=== PATIENT | male | born 1960 | race Caucasian/White ===

== ENCOUNTER 2018-10-10 09:57 | Day surgery (SDC) | payer BC ==
[2018-10-03 11:54] LABS: HEMATOCRIT 46.9 % (37.9-51.0); HEMOGLOBIN 16.2 g/dL (13.5-17.0); MEAN CORPUSCULAR HGB CONC 34.6 g/dL (32.0-36.0); MEAN CORPUSCULAR VOLUME 107 fl (80-97); PLATELET COUNT 140 10^3/uL (150-450); RED BLOOD COUNT 4.38 10^6/uL (4.35-5.55); RED CELL DISTRIBUTION WIDTH 12.8 % (11.5-14.0); WHITE BLOOD COUNT 5.8 10^3/uL (4.0-10.5)
[2018-10-03 11:57] LABS: PROTHROMBIN TIME 13.7 SEC (11.4-15.4)
[2018-10-03 11:58] LABS: PARTIAL THROMBOPLASTIN TIME 29.8 SEC (23.5-35.8)
[2018-10-03 12:10] LABS: APPEARANCE,URINE SLIGHTLY-CLOUDY; BILIRUBIN,URINE SMALL (NEGATIVE); COLOR,URINE AMBER; GLUCOSE, URINE NEGATIVE (NEGATIVE); KETONES,URINE NEGATIVE (NEGATIVE); LEUKOCYTE ESTERASE,URINE NEGATIVE (NEGATIVE); NITRITE,URINE NEGATIVE (NEGATIVE); PROTEIN,URINE >=500 mg/dL (NEGATIVE); URINE SPECIFIC GRAVITY 1.031
--- NOTE | 2018-10-04 10:10 | EKG REPORT ---
SEVERITY:- NORMAL ECG - SINUS RHYTHM : Confirmed by: Smita Eli 04-Oct-2018 10:09:03
[~2018-10-10 09:57] MED LIST: FENTANYL CITRATE INJ/PF 100 MCG/2 ML AMPUL ONE; LIDOCAINE 1% INJ-PF (10 MG/ML) 30 ML SDV ONE; LIDOCAINE 2% INJ-PF (100 MG/5 ML) SYRINGE ONE; PROPOFOL INJ 200 MG/20 ML VIAL IV ONE
[2018-10-10] MEDS ORDERED: LIDOCAINE 0.5% INJ-PF (5 MG/ML) 50 ML SDV ONE (10:30)
[2018-10-10] MEDS ORDERED: MIDAZOLAM 2 MG/2 ML INJ ONE (11:22)
[2018-10-10] MEDS: MIDAZOLAM 2 MG/2 ML INJ ONE ×2 (11:25→11:55)
[2018-10-10] MEDS ORDERED: CEFAZOLIN 1 GM/D5W RTU 1 GM/50 ML RTUPB IV ONE (12:44)
[2018-10-10] MEDS ORDERED: MORPHINE SULFATE 10 MG/ML INJ IV PRN (13:41)
[2018-10-10] MEDS ORDERED: FENTANYL CITRATE INJ/PF 100 MCG/2 ML AMPUL IV PRN ×2 (13:41)
[2018-10-10] MEDS ORDERED: DIPHENHYDRAMINE HCL 50 MG/ML VIAL IV PRN (13:41)
[2018-10-10] MEDS ORDERED: PROMETHAZINE HCL INJ 25 MG/1 ML VIAL IV PRN ×2 (13:41)
[2018-10-10] MEDS ORDERED: MEPERIDINE HCL/PF INJ 25 MG/1 ML DISP.SYRIN IV PRN (13:41)
[2018-10-10] MEDS ORDERED: FENTANYL CITRATE INJ/PF 100 MCG/2 ML AMPUL ONE (14:13)
[2018-10-10] MEDS: FENTANYL CITRATE INJ/PF 100 MCG/2 ML AMPUL IV PRN ×2 (14:15→14:26)
[2018-10-10] MEDS ORDERED: OXYCODONE-ACETAMINOPHEN 5-325 MG TABLET PO PRN (14:26)
[2018-10-10] MEDS ORDERED: OXYCODONE HCL IR 5 MG TABLET ONE (15:09)
--- NOTE | 2018-10-10 16:10 | RADIOLOGY REPORT (SQ) ---
EXAM DESCRIPTION: NO CHG FLUORO; L SPINE 2 VIEWS COMPLETED DATE/TIME: 10/10/2018 2:29 pm REASON FOR STUDY: KYPHOPLASTY LUMBAR ASST WITH FLUORO IN OR S32.050A WEDGE COMPRESSION FRACTURE OF FIFTH LUMBAR VERTEBRA COMPARISON: None. FLUOROSCOPY TIME: 1.2 minutes 8 Images saved to PACS TECHNIQUE: Intra-operative images acquired during surgical procedure to evaluate progress. NUMBER OF IMAGES: 8 LIMITATIONS: None. FINDINGS: Intraoperative images obtained to evaluate progress of lumbar kyphoplasty. Please see ope rative report for detailed description of procedure. IMPRESSION: IMAGE(S) OBTAINED DURING PROCEDURE. COMMENT: Quality ID 145: Final reports for procedures using fluoroscopy that document radiation exp osure indices, or exposure time and number of fluorographic images (if radiation exposure indices are not available) Please consult full operative report of the attending physician for description of the procedure. TECHNICAL DOCUMENTATION: JOB ID: [id number] [employer]- All Rights Reserved Reading location - IP/workstation name: [email or web address]
--- NOTE | 2018-10-10 16:10 | RADIOLOGY REPORT (SQ) ---
EXAM DESCRIPTION: NO CHG FLUORO; L SPINE 2 VIEWS COMPLETED DATE/TIME: 10/10/2018 2:29 pm REASON FOR STUDY: KYPHOPLASTY LUMBAR ASST WITH FLUORO IN OR S32.050A WEDGE COMPRESSION FRACTURE OF FIFTH LUMBAR VERTEBRA COMPARISON: None. FLUOROSCOPY TIME: 1.2 minutes 8 Images saved to PACS TECHNIQUE: Intra-operative images acquired during surgical procedure to evaluate progress. NUMBER OF IMAGES: 8 LIMITATIONS: None. FINDINGS: Intraoperative images obtained to evaluate progress of lumbar kyphoplasty. Please see ope rative report for detailed description of procedure. IMPRESSION: IMAGE(S) OBTAINED DURING PROCEDURE. COMMENT: Quality ID [id number]: Final reports for procedures using fluoroscopy that document radiation exp osure indices, or exposure time and number of fluorographic images (if radiation exposure indices are not available) Please consult full operative report of the attending physician for description of the procedure. TECHNICAL DOCUMENTATION: JOB ID: [id number] [employer]- All Rights Reserved Reading location - IP/workstation name: [email or web address]
[2018-10-10 16:27] VITALS: BP 177/91
--- NOTE | 2018-10-12 12:41 | OPERATIVE REPORT E ---
Operative Report NAME: NANCY SQUIRES : 1960 AGE: 57Y DATE OF SURGERY: 10/10/2018 ROOM: PREOPERATIVE DIAGNOSIS: VERTEBRAL COMPRESSION FRACTURE AT L4. POSTOPERATIVE DIAGNOSIS: VERTEBRAL COMPRESSION FRACTURE AT L4. OPERATION: PERCUTANEOUS KYPHOPLASTY AT VERTEBRAL BODY LEVEL 4. SURGEON: HE HODGE M.D. [employer]AFER PRODUCTION WORKER: None. ANESTHESIA: MAC. COMPLICATIONS: None. PROCEDURE: After obtaining informed consent and advising the patient of the risks and benefits including serious neurological injury, bleeding, infection, paralysis, allergic reaction, , and failure to adequately treat pain, he was taken to the operating room suite. He was placed in the prone position and was prepped and draped. A C-arm was brought in for lateral and AP visualization and draped appropriately at the L4 level using peripedicular approach. Suitable lidocaine with bicarb. A small incision was made. trocar was then advanced under serial fluoroscopy views in AP and lateral positions in a peripedicular approach and medializing after passing into the vertebral body. wall. The drill was then placed and removed followed by the . The procedure was then repeated in the peripedicular approach at the same vertebral level at L4. When all the wounds were sufficiently , at the L4 level, . A total of 5.8 mL of mixture was placed on sides of the L4 level. After the were removed, were placed into the trocars. The cement was allowed to harden prior to removing the trocars. The region was then cleaned, sterile dressings were placed. Steri-Strips over the incision sites. The patient was taken to the PACU for further postoperative care and monitoring. DICTATING PHYSICIAN: HE HODGE M.D. [id number] PHY#: [id number] ID: [id number] JOB#: [id number] ACCT: [id number] cc:HE HODGE M.D. >
== END 2018-10-10 16:20 | disposition home or self-care (01) ==
LOC: OROUT 09:57
PROVIDERS: ATTEND Student in an Organized Health Care Education/Training Program
DX: S32.000A Wedge compression fracture of unspecified lumbar vertebra, initial encounter for closed fracture (principal); X58.XXXA Exposure to other specified factors, initial encounter; M47.26 Other spondylosis with radiculopathy, lumbar region; M51.46 Schmorl's nodes, lumbar region; M51.36 Other intervertebral disc degeneration, lumbar region; I10 Essential (primary) hypertension; F17.210 Nicotine dependence, cigarettes, uncomplicated; E66.9 Obesity, unspecified; Z68.35 Body mass index [BMI] 35.0-35.9, adult
CPT/HCPCS: 93010; 93005; 36415; 85027; 85610; 85730; 81001; 72100; 22514; C1713; Q9966; J2250; J0690; J3010; J3490 ×2; J2001; J2704

== ENCOUNTER 2020-05-23 10:58 | Emergency (ER) | payer BC ==
[2020-05-23 11:49] LABS: ABSOLUTE EOSINOPHILS # (AUTO) 0.1 10^3/uL (0.0-0.6); ABSOLUTE LYMPHOCYTES (AUTO) 1.4 10^3/uL (0.5-4.7); ABSOLUTE MONOCYTES (AUTO) 0.4 10^3/uL (0.1-1.4); ABSOLUTE NEUT (AUTO) 3.1 10^3/uL (1.7-8.2); BASOPHILS % (AUTO) 0.6 % (0-2); EOSINOPHILS % (AUTO) 1.8 % (0-6); HEMATOCRIT 45.9 % (37.9-51.0); HEMOGLOBIN 15.9 g/dL (13.5-17.0); LYMPHOCYTES % (AUTO) 27.3 % (13-45); MEAN CORPUSCULAR HEMOGLOBIN 36.7 pg (27.0-33.4); MEAN CORPUSCULAR HGB CONC 34.7 g/dL (32.0-36.0); MEAN CORPUSCULAR VOLUME 106 fl (80-97); MONOCYTES % (AUTO) 7.6 % (3-13); PLATELET COUNT 129 10^3/uL (150-450); RED BLOOD COUNT 4.34 10^6/uL (4.35-5.55); RED CELL DISTRIBUTION WIDTH 12.8 % (11.5-14.0); SEGMENTED NEUTROPHILS % (AUTO) 62.7 % (42-78); TOTAL CELLS COUNTED % (AUTO) 100 %
[2020-05-23 12:03] LABS: ALBUMIN 4.4 g/dL (3.5-5.0); ALKALINE PHOSPHATASE 55 U/L (38-126); ANION GAP 10 (5-19); ASPARTATE AMINO TRANSFERASE 90 U/L (17-59); BILIRUBIN,DIRECT 0.4 mg/dL (0.0-0.4); BILIRUBIN,TOTAL 0.7 mg/dL (0.2-1.3); BLOOD UREA NITROGEN 11 mg/dL (7-20); CALCIUM 9.2 mg/dL (8.4-10.2); CARBON DIOXIDE 28 mmol/L (22-30); CHLORIDE 104 mmol/L (98-107); CREATINE KINASE 156 U/L (55-170); GLUCOSE 95 mg/dL (75-110); TOTAL PROTEIN 7.4 g/dL (6.3-8.2)
[2020-05-23 12:12] LABS: CREATINE KINASE MB 2.43 ng/mL (<4.55)
[2020-05-23 12:17] LABS: TROPONIN I < 0.012 ng/mL
--- NOTE | 2020-05-23 14:35 | RADIOLOGY REPORT (SQ) ---
EXAM DESCRIPTION: CHEST SINGLE VIEW IMAGES COMPLETED DATE/TIME: 05/23/2020 2:08 pm REASON FOR STUDY: chest pain COMPARISON: None. EXAM PARAMETERS: NUMBER OF VIEWS: One view. TECHNIQUE: Single frontal radiographic view of the chest acquired. RADIATION DOSE: NA LIMITATIONS: None. FINDINGS: LUNGS AND PLEURA: No opacities, masses or pneumothorax. No pleural effusion. MEDIASTINUM AND HILAR STRUCTURES: No masses. Contour normal. HEART AND VASCULAR STRUCTURES: Heart normal in size. Normal vasculature. BONES: No acute findings. HARDWARE: None in the chest. OTHER: No other significant finding. IMPRESSION: NO ACUTE RADIOGRAPHIC FINDING IN THE CHEST. TECHNICAL DOCUMENTATION: JOB ID: [id number] 2010 [employer]- All Rights Reserved Reading location - IP/workstation name: [email or web address]
[2020-05-23] MEDS ORDERED: LABETALOL HCL INJ 20 MG/4 ML DISP.SYRIN IV ONE (14:53)
--- NOTE | 2020-05-23 14:55 | ER Document Report ---
ED Cardiac - General Chief Complaint: Chest Pain Stated Complaint: CHEST PAIN Time Seen by Provider: 05/23/20 14:22 Primary Care Provider: ADRIANA MORELAND MD [Primary Care Provider] - Follow up tomorrow (You need to call your primary care physician as soon as possible for an outpatient follow-up appointment) Information source: Patient Notes: 59-year-old male with hypertension uncontrolled not taking medications as he does not like the side effects presents to the emergency room complaining of some left-sided chest wall pain that he describes as pressure that started earlier this morning around 530. States it comes and goes nothing makes it worse, nothing makes it better. Did not take any medications for it prior to arrival. Denies any recent trauma, no heavy lifting pushing pulling or tugging. Patient is right-handed. Denies any cardiac family history. Describes it as a pressure type pain. He denies any recent travel. No shortness of breath, no difficulty breathing. No COVID-19 exposure. No previous history of DVTs or PEs. TRAVEL OUTSIDE OF THE [place] IN LAST 30 DAYS: No - Related Data Allergies/Adverse Reactions: No Known Allergies Allergy (Unverified 10/03/18 11:44) Past Medical History - General Information source: Patient - Social History Smoking Status: Former Smoker Frequency of alcohol use: Occasional Drug Abuse: None Family History: None - Past Medical History Cardiac Medical History: Reports: Hx Hypertension Denies: Hx Coronary Artery Disease, Hx Heart Attack Pulmonary Medical History: Denies: Hx Asthma, Hx Bronchitis, Hx COPD, Hx Pneumonia Neurological Medical History: Denies: Hx Cerebrovascular Accident, Hx Seizures Musculoskeletal Medical History: Reports Hx Arthritis - RIGHT KNEE - Immunizations Hx Diphtheria, Pertussis, Tetanus Vaccination: Yes Review of Systems - Review of Systems Constitutional: No symptoms reported EENT: No symptoms reported Cardiovascular: Chest pain. denies: Dyspnea Respiratory: No symptoms reported Gastrointestinal: No symptoms reported Skin: No symptoms reported Neurological/Psychological: No symptoms reported -: Yes All other systems reviewed and negative Physical Exam - Vital signs Vitals: Temp Pulse Resp BP Pulse Ox 98.0 F 58 L 18 177/77 H 96 05/23/20 11:07 05/23/20 11:07 05/23/20 11:07 05/23/20 11:07 05/23/20 11:07 - Notes Notes: GENERAL: Mild acute distress, non-toxic appearance. HEAD: Normal with no signs of head trauma. EYES: PERRLA, EOMI, conjunctiva normal, no discharge. EARS: Hearing grossly intact. NOSE: Normal. THROAT: Oropharynx is normal. NECK: Normal range of motion, no tenderness, supple, no lymphadenopathy, No adenopathy, no JVD. CHEST: Clear breath sounds bilaterally. No wheezes, rales, or rhonchi. Nontender to palpation over the chest wall. CARDIAC: Regular rate and rhythm. S1 and S2, without murmurs, gallops, or rubs. VASCULAR: No Edema. Peripheral pulses normal and equal in all extremities. ABDOMEN: Normal and soft with no tenderness, no masses or pulsatile masses. No organomegaly. Positive bowel sounds x4. No CVA tenderness noted bilaterally. GASTROINTESTINAL: Bowel sounds normal LYMPATHTIC: No lymphadenopathy noted. MUSCULOSKELETAL: Good range of motion of all major joints. Extremities without clubbing, cyanosis or edema. NEUROLOGICAL: Alert and oriented x 3. No focal sensory or strength deficits. Speech normal. Follows commands appropriately. PSYCHIATRIC: Normal Affect, judgement and mood. SKIN: Normal appearance with no rashes or lesions. Course - Re-evaluation Re-evalutation: 05/23/20 15:20 HEART Score: History 0 ECG 0 Age 1 Risk Factors 1 Troponin 0 Total: 2 If HEART score is less than or equal to 3 AND both tronponin measurments are normal, the 30 day risk of a major adverse cardiac event (all-cause mortality, myocardia infarction or need for coronary revscularization) is < 1% (Sensitivity 100%, NPV 100%). Chest pain in a patient without evidence of cardiac or other serious etiology on workup today. I discussed with patient that, based on their age, risk factors and emergency department testing today, the likelihood that their symptoms are related to a heart attack is very low (estimated risk of heart attack or over the next 30 days of less than 1%). The patient demonstrates decision making capacity and has verbalized an understanding of these risks to me. Based on this, the patient has chosen to follow-up as an outpatient. Usual chest pain return precautions reviewed. The patient states understanding and agreement with this plan. 05/23/20 16:56 05/23/20 17:14 Case was staffed with the ED attending Dr. Ansari, all test results were reviewed with the patient and family. Patient is resting comfortably after receiving IV Toradol. Currently pain-free. Blood pressure 193/97. Discussed option of admitting patient for chest pain rule out. Patient with heart score of 2 not likely to be an acute coronary syndrome. Patient does not want to be admitted. Patient with negative troponins x2,, EKG x2 unchanged. He was couns eled on the importance of outpatient follow-up with his primary care physician for his persistent uncontrolled hypertension. Also counseled to take a daily baby aspirin. Patient did not receive any aspirin after arrival to the emergency room. He will be given 4 baby aspirin's prior to discharge. Patient was given strict return to the emergency room guidelines. Return for any new or worsening symptoms. All questions were answered. Patient verbalized understanding and agrees with plan of care. 05/23/20 17:18 05/23/20 17:40 - Vital Signs Vital signs: Temp Pulse Resp BP Pulse Ox 98.0 F 58 L 16 217/104 H 97 05/23/20 11:07 05/23/20 11:07 05/23/20 18:02 05/23/20 18:02 05/23/20 18:02 - Laboratory Result Diagrams: 05/23/20 11:26 05/23/20 11:26 Laboratory results interpreted by me: 05/23/20 05/23/20 11:26 11:26 RBC 4.34 L MCV 106 H MCH 36.7 H Plt Count 129 L AST 90 H ALT 59 H - Diagnostic Test Radiology reviewed: Reports reviewed - EKG Interpretation by Me EKG shows normal: Sinus rhythm Rate: Normal Additional EKG results interpreted by me: 05/23/20 15:03 EKG was interpreted by ED physician Dr. Rajan Normal sinus rhythm No acute STEMI Rate of [address] wave abnormalities which are new from previous EKG of 10/03/2018 05/23/20 16:54 Repeat EKG was interpreted by ER physician Dr. Ansari No acute STEMI Normal sinus rhythm Rate 51 Borderline prolonged QT interval Nonspecific T wave abnormality Prolonged QT intervals are new compared to his previous EKG of 05/23/2020 at 1104 05/23/20 17:40 Discharge - Discharge Clinical Impression: Chest pain of unknown etiology Hypertension Qualifiers: Hypertension type: unspecified Qualified Code(s): I10 - Essential (primary) hypertension Condition: Stable Disposition: HOME, SELF-CARE Instructions: Chest Pain of Unclear Cause ([facility]), High Blood Pressure, Requiring Treatment ([facility]) Additional Instructions: It is imperative that you follow-up with your primary care physician on Tuesday for your persistent uncontrolled hypertension. Please take a daily baby aspirin. Return to emergency room for any new or worsening symptoms. Referrals: ADRIANA MORELAND MD [Primary Care Provider] - Follow up tomorrow (You need to call your primary care physician as soon as possible for an outpatient follow-up appointment)
[2020-05-23] MEDS ORDERED: KETOROLAC TROMETHAMINE INJ/PF 30 MG/1 ML SDV IV ONE (15:10)
[2020-05-23] MEDS ORDERED: ASPIRIN 81 MG TABLET, CHEWABLE PO ONE (17:14)
--- NOTE | 2020-05-23 18:09 | EKG REPORT ---
SEVERITY:- ABNORMAL ECG - SINUS RHYTHM ABNORMAL T, CONSIDER ISCHEMIA, LATERAL LEADS BORDERLINE PROLONGED QT INTERVAL : Confirmed by: Smita Eli 23-May-2020 18:09:29
--- NOTE | 2020-05-23 18:11 | EKG REPORT ---
SEVERITY:- ABNORMAL ECG - SINUS RHYTHM NONSPECIFIC T ABNORMALITIES, ANT-LAT LEADS LVH : Confirmed by: Smita Eli 23-May-2020 18:10:35
[2020-05-23 18:12] VITALS: BP 217/104
== END 2020-05-23 18:13 | disposition home or self-care (01) ==
LOC: ER 10:58
DX: R07.89 Other chest pain (principal); I10 Essential (primary) hypertension; Z87.891 Personal history of nicotine dependence
CPT/HCPCS: 93005; 99285; 96374; 96375; 36415; 82553; 82550; 85025; 80053; 84484; 71045; 93010; J3490; J1885